=== PATIENT | male | born 1995 | race Caucasian/White ===

== ENCOUNTER 2024-05-11 12:37 | Emergency (ER) | payer SELFPAY ==
[~2024-05-11] VITALS: Ht 167.6 cm; Wt 81.0 kg
--- OUTSIDE RECORDS SUMMARY | 2024-05-11 14:13 | XMS ---
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 ELiseth VISIT COUNT (12 MO.) 8 [facility] 7 [facility] 6 [facility] 4 [facility] 4 [facility] ([place]) 3 [facility] 1 [facility] 1 Wil Vazquez ([facility]) 1 [facility] 1 [facility] 1 [facility] [place] TOTAL 37 NOTE: Visits indicate total known visits. ED/UCC VISIT TRACKING (12 MO.) 05/11/2024 12:39 CATARINA Mendoza TYPE: Emergency COMPLAINT: - SUICIDAL IDEATION 05/11/2024 00:19 [facility] [place] TYPE: Emergency DIAGNOSES: - alusinations - hallucinations - hallusinations 05/10/2024 18:12 [facility] Alex ROGERS ([place]) TYPE: Emergency DIAGNOSES: - Anxiety disorder, unspecified - Encounter for other general examination - Hallucinations, unspecified - Other stimulant abuse, uncomplicated - Hallucinations - mental health - Suicidal Thoughts 05/09/2024 14:37 Nigel ROGERS TYPE: Emergency COMPLAINT: - Off Meds // Stomach Issues 05/08/2024 00:56 [facility] Alex ROGERS ([place]) TYPE: Emergency DIAGNOSES: - Delusional disorders - Delusional - Medical Clearance 05/05/2024 08:39 [facility] Alex ROGERS ([place]) TYPE: Emergency DIAGNOSES: - Attention-deficit hyperactivity disorder, unspecified type - Personal history of traumatic brain injury - medication refill 05/03/2024 15:19 [facility] Alex ROGERS ([place]) TYPE: Emergency DIAGNOSES: - Suicidal ideations - Altered Mental Status - mental health, poss covid - Poisoning - Suicidal Thoughts 05/01/2024 16:00 [facility] TYPE: Emergency COMPLAINT: - Mental Health DIAGNOSES: - Depression, unspecified - Other stimulant abuse, uncomplicated - Mental Health Problem 05/01/2024 14:36 [facility] [place] [facility] TYPE: Emergency COMPLAINT: - Wants to go to [facility] DIAGNOSES: - Needs a ride - Wants to go to [facility] - Wants to go to [facility] 05/01/2024 06:23 [facility] [place] [facility] TYPE: Emergency COMPLAINT: - mental health Eval DIAGNOSES: - Depression, unspecified - Other stimulant abuse, uncomplicated - mental health Eval - Mental Health Problem 04/29/2024 20:50 [facility] TYPE: Emergency COMPLAINT: - Altered Mental DIAGNOSES: - Delusional disorders - Other stimulant abuse, uncomplicated - Addiction Problem - Altered Mental 04/29/2024 02:55 [facility] [place] TYPE: Emergency DIAGNOSES: - Delusional disorders - head ache - Headache 04/22/2024 19:51 [facility] TYPE: Emergency COMPLAINT: - EMS-Ingestion DIAGNOSES: - Attention-deficit hyperactivity disorder, unspecified type - Major depressive disorder, recurrent, moderate - Other stimulant dependence, uncomplicated - Unspecified psychosis not due to a substance or known physiological condition - Anxiety - EMS-Ingestion 04/22/2024 14:51 [facility] TYPE: Emergency DIAGNOSES: - EMS 03/30/2024 06:26 [place] [facility]jah [facility] TYPE: Emergency COMPLAINT: - FOLLOW UP [facility] [place] [facility] COMPLAINT: - COLD SYMPTOMS DIAGNOSES: 1. Nausea with vomiting, unspecified 2. Viral infection, unspecified 3. Contact with and (suspected) exposure to COVID-19 03/23/2024 00:26 [facility] TYPE: Emergency DIAGNOSES: - Anxiety disorder, unspecified - Anxiety - Depression - MHE 03/22/2024 21:59 [facility] TYPE: Emergency DIAGNOSES: - Delusional disorders - EMS - Psychiatric Evaluation 03/07/2024 21:56 [facility] [place] TYPE: Emergency DIAGNOSES: - Major depressive disorder, single episode, severe with psychotic features - Other stimulant use, unspecified with intoxication, unspecified - Rhabdomyolysis - [facility] Clearance for [place] - Mental Health Problem 03/07/2024 05:34 [facility] TYPE: Emergency DIAGNOSES: - Depression, unspecified - Depression Plus 17 More Visits INPATIENT VISIT TRACKING (12 MO.) No inpatient visits to display in this time frame [email or web address]
[2024-05-11] MEDS ORDERED: NYSTATIN/TRIAMCINOLONE 15 GM TUBE TOP ONE (14:30)
[2024-05-11 14:39] LABS: BASOPHILS 0.7 % (0-2); EOSINOPHILS 2.5 % (0-6); HEMATOCRIT 42.9 % (35.0-50.0); HEMOGLOBIN 14.9 g/dL (12.0-18.0); LYMPHOCYTES 25.2 % (24-44); MCHC 34.7 g/dl (30-36); MCV 86.5 fl (81-99); MONOCYTES 10.9 % (0-12); NEUTROPHILS 60.7 % (39-80); PLATELET COUNT 232 K/uL (140-440); RBC 4.95 M/ul (4.3-5.7); RDW 13.5 (10.5-15.0)
[2024-05-11 15:04] LABS: ALBUMIN 3.7 g/dL (3.4-5.0); ALBUMIN/GLOBULIN RATIO 1.09 (1.1-2.4); ALKALINE PHOSPHATASE 63 U/L (46-116); ALT (SGPT) 57 U/L (14-59); ANION GAP 10.5 (7-21); AST (SGOT) 58 U/L (15-37); BILIRUBIN, TOTAL 0.9 ng/dL (0.2-1.0); CALCIUM 8.8 mg/dL (8.5-10.1); CARBON DIOXIDE 33 mmol/L (21-32); CHLORIDE 102 mmol/L (98-107); GLOMERULAR FILTRATION RATE,EST 103 mL/min (>60); POTASSIUM 3.5 mmol/L (3.5-5.1); PROTEIN, TOTAL 7.1 g/dL (6.4-8.2); TSH, 3RD GENERATION 1.341 uIU/mL (0.358-3.740); UREA NITROGEN 12 mg/dL (7-18)
[2024-05-11 15:21] LABS: ACETAMINOPHEN 0 ug/mL (10-30); ALCOHOL, MEDICAL <3 ng/dL (<3)
[2024-05-11 15:22] LABS: SALICYLATE < 0.2 mg/dL (2.8-20.0)
[2024-05-11 16:02] LABS: BILIRUBIN, URINE POSITIVE (negative); BLOOD/HGB, URINE NEGATIVE (Negative); KETONE, URINE SMALL (Negative); LEUK ESTERASE, URINE NEGATIVE (negative); NITRITE, URINE NEGATIVE (negative)
[2024-05-11 16:16] LABS: AMPHETAMINES, URINE POSITIVE (NEGATIVE); BARBITURATES, URINE NEGATIVE (NEGATIVE); BENZODIAZEPINE, URINE NEGATIVE (NEGATIVE); BUPRENORPHINE, URINE NEGATIVE (NEGATIVE); CANNABINOID, URINE NEGATIVE (NEGATIVE); COCAINE, URINE NEGATIVE (NEGATIVE); ECSTASY, URINE NEGATIVE (NEGATIVE); FENTANYL, URINE NEGATIVE (NEGATIVE); METHADONE, URINE NEGATIVE (NEGATIVE); OPIATES, URINE NEGATIVE (NEGATIVE); OXYCODONE, URINE NEGATIVE (NEGATIVE); PHENCYCLIDINE, URINE NEGATIVE (NEGATIVE)
[2024-05-11] MEDS ORDERED: hydrOXYzine pamoate 50 MG CAP PO ONE (18:30)
[2024-05-12 09:02] VITALS: BP 130/74
--- NOTE | 2024-05-12 22:13 | EKG ---
[facility] [address] [place] [address] Signed Normal sinus rhythm with sinus arrhythmia Cannot rule out Inferior infarct , age undetermined Abnormal ECG No previous ECGs available Confirmed by Mary Ann Donato MD () on 05/12/2024 10:13:10 PM Electronically Signed By: MARY ANN DONATO MD 05/12/242212 PATIENT NAME: AIDA MENA Electrocardiogram DATE OF : [birth year] PHYSICIAN: MARY ANN DONATO MD REPORT #: [id number] REPORT IS CONFIDENTIAL AND NOT TO BE RELEASED WITHOUT AUTHORIZATION
== END 2024-05-12 09:08 | disposition short-term general hospital (02) ==
LOC: ED 12:37
PROVIDERS: Emergency Medicine
DX: F32.A Depression, unspecified (principal); L21.9 Seborrheic dermatitis, unspecified
CPT/HCPCS: 36415; 80053; 80307; 81003; 84443; 85025; 93005; 93010; G0480; U0002